=== PATIENT | female | born 1975 | race Caucasian/White ===

== ENCOUNTER 2017-12-13 14:30 | Observation (INO) | payer BC ==
[2017-12-13 15:32] VITALS: BMI 36.6
[2017-12-13] MEDS ORDERED: Dextrose 50% Abboject 50 ML SYRINGE SLOW IVP PRN (15:48)
[2017-12-13] MEDS ORDERED: Ondansetron ODT 4 MG TAB PO PRN (15:48)
[2017-12-13] MEDS ORDERED: Dextrose 5% in Water 1,000 ML IV PRN (15:48)
[2017-12-13] MEDS ORDERED: Ondansetron HCl/PF 4 MG/2 ML Vial IVP PRN (15:48)
[2017-12-13] MEDS ORDERED: traMADol HCl 50 MG TAB PO PRN ×2 (15:51)
[2017-12-13] MEDS: Lactated Ringer's 1,000 ML IV SCH (16:24)
[2017-12-13] MEDS: Acetaminophen 500 MG TAB PO SCH (17:36)
[2017-12-13] MEDS: Ketorolac Tromethamine 30 MG/ML VIAL IVP SCH (17:36)
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
[2017-12-13] MEDS: Gabapentin 300 MG CAP PO SCH (20:25)
[2017-12-13] MEDS: Hydroxychloroquine Sulfate 200 MG TAB PO SCH (20:25)
[2017-12-14] MEDS: Ketorolac Tromethamine 30 MG/ML VIAL IVP SCH ×2 (00:14→06:27)
[2017-12-14] MEDS: Acetaminophen 500 MG TAB PO SCH ×3 (00:15→12:30)
[2017-12-14] MEDS: Lactated Ringer's 1,000 ML IV SCH (02:31)
[2017-12-14 05:08] LABS: #Eosinphils 0.1 thou/uL (0.0-0.7); #Lymphocytes 2.4 thou/uL (1.20-3.40); #Monocytes 0.9 thou/uL (0.11-0.59); #Neutrophils 7.4 thou/uL (1.40-6.50); %Basophils 0.2 % (0.0-1.0); %Eosinophils 0.9 % (0.0-10.0); %Monocytes 8.3 % (0.0-10.0); %Neutrophils 68.6 % (42.0-75.0); Hemoglobin 13.8 g/dL (12.0-16.0); Mean Corpuscular HGB CONC 35.3 g/dL (32.0-36.0); Mean Corpuscular Hemoglobin 32.3 pg (27.0-31.0); Mean Corpuscular Volume 91.5 fl (81.0-99.0); Mean Platelet Volume 6.4 fL (7.4-10.4); Platelet Count 305 thou/uL (130-400); RBC Distribution Width 12.6 % (11.5-14.5); Red Blood Cell (RBC) Count 4.27 mill/uL (4.20-5.40); White Blood Cell (WBC) Count 10.7 thou/uL (4.8-10.8)
[2017-12-14] MEDS: Hydroxychloroquine Sulfate 200 MG TAB PO SCH (08:14)
[2017-12-14] MEDS: Gabapentin 300 MG CAP PO SCH (08:14)
[2017-12-14] MEDS ORDERED: Escitalopram Oxalate 20 mg Tablet PO SCH (09:00)
[2017-12-14] MEDS ORDERED: Multivitamin W/ Minerals 1 TAB PO SCH (09:00)
[2017-12-14] MEDS ORDERED: Calcium Carbonate 600 MG TAB PO SCH (09:00)
[2017-12-14] MEDS ORDERED: Ibuprofen 600 MG TAB PO SCH (09:00)
[2017-12-14] MEDS ORDERED: predniSONE 5 MG TAB PO SCH (09:00)
[2017-12-14] MEDS ORDERED: Stress 600 With Zinc 1 TAB PO SCH (09:00)
[2017-12-14 11:56] VITALS: BP 101/68; TEMP 98
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
[2017-12-15] MEDS ORDERED: Furosemide 80 MG TAB PO SCH (09:00)
[2017-12-15] MEDS ORDERED: Nebivolol HCl 5 MG TAB PO SCH (09:00)
[2017-12-15] MEDS ORDERED: Valsartan 80 MG TAB PO SCH (09:00)
[2017-12-15] MEDS ORDERED: Hydrochlorothiazide 25 MG TAB PO SCH (09:00)
== END 2017-12-14 14:45 | disposition home or self-care (01) ==
LOC: SURG B 14:30
PROVIDERS: ADMIT Surgery; ATTEND Surgery
DX: K43.9 Ventral hernia without obstruction or gangrene (principal); I48.2 Chronic atrial fibrillation; I10 Essential (primary) hypertension; D89.89 Other specified disorders involving the immune mechanism, not elsewhere classified; E66.01 Morbid (severe) obesity due to excess calories; Z68.36 Body mass index [BMI] 36.0-36.9, adult; Z79.891 Long term (current) use of opiate analgesic; Z79.52 Long term (current) use of systemic steroids; Z79.899 Other long term (current) drug therapy; Z88.8 Allergy status to other drugs, medicaments and biological substances; V86.59XA Driver of other special all-terrain or other off-road motor vehicle injured in nontraffic accident, initial encounter
CPT/HCPCS: 36415; 85025; 96361; 96374; 96375; 96376; G0378; J1885; J2270

== ENCOUNTER 2018-01-11 15:37 | Outpatient (CLI) | payer BC ==
[2018-01-11 16:46] LABS: #Basophils 0.1 thou/uL (0.0-0.2); #Eosinphils 0.1 thou/uL (0.0-0.7); #Lymphocytes 2.4 thou/uL (1.20-3.40); #Monocytes 0.7 thou/uL (0.11-0.59); #Neutrophils 4.2 thou/uL (1.40-6.50); %Basophils 0.7 % (0.0-1.0); %Eosinophils 1.8 % (0.0-10.0); %Monocytes 9.3 % (0.0-10.0); %Neutrophils 56.2 % (42.0-75.0); Hemoglobin 14.6 g/dL (12.0-16.0); Mean Corpuscular Hemoglobin 33.1 pg (27.0-31.0); Mean Corpuscular Volume 91.7 fL (78.0-98.0); Mean Platelet Volume 6.3 fL (7.4-10.4); Platelet Count 356 thou/uL (130-400); RBC Distribution Width 12.7 % (11.5-14.5); White Blood Cell (WBC) Count 7.5 thou/uL (4.8-10.8)
[2018-01-11 17:07] LABS: Anion Gap 12 mmol/L (10-20); BUN (Urea Nitrogen) 14 mg/dL (7.0-18.7); Calc. Creatinine Clearance 0 mL/min (70-130); Calcium 9.5 mg/dL (7.8-10.44); Carbon Dioxide 28 mmol/L (22-29); Chloride 102 mmol/L (98-107); Estimated GFR-MDRD 73; Glucose 98 mg/dL (70-105); Potassium 4.1 mmol/L (3.5-5.1); Sodium 138 mmol/L (136-145)
== END 2018-01-11 15:38 | disposition home or self-care (01) ==
LOC: LABBT 15:37
PROVIDERS: ATTEND Specialist
DX: Z01.812 Encounter for preprocedural laboratory examination (principal); K43.9 Ventral hernia without obstruction or gangrene
CPT/HCPCS: 80048; 85025

== ENCOUNTER 2018-01-17 11:52 | Observation (INO) | payer BC ==
[2018-01-17] MEDS ORDERED: Ketorolac Tromethamine 30 MG/ML VIAL ONE (12:49)
[2018-01-17] MEDS ORDERED: CEFAZOLIN/Water 2 GM/20 ML SYRINGE ONE (12:49)
[2018-01-17] MEDS ORDERED: Ondansetron HCl/PF 4 MG/2 ML Vial ONE (12:53)
[2018-01-17] MEDS ORDERED: Glycopyrrolate 0.2 MG/ML 5 ML SYRINGE ONE (12:53)
[2018-01-17] MEDS ORDERED: Succinylcholine Chloride 20 MG/ML 10 ml SYRINGE FS ONE (12:53)
[2018-01-17] MEDS ORDERED: Dexamethasone 20 MG/5 ML VIAL ONE (12:53)
[2018-01-17] MEDS ORDERED: Lidocaine 1% PF 5 ML VIAL ONE (12:53)
[2018-01-17] MEDS ORDERED: PROPOFOL 200 MG/20 ML VIAL ONE (12:53)
[2018-01-17] MEDS ORDERED: Midazolam HCl 2 mg/2 ml Vial ONE (13:00)
[2018-01-17] MEDS ORDERED: Fentanyl 100 MCG/2 ML VIAL ONE ×4 (15:09→19:42)
[2018-01-17] MEDS ORDERED: Bupivacaine HCl 0.25%/Epi 0.0005/PF 10 ML VIAL FS ONE ×2 (15:09)
[2018-01-17] MEDS ORDERED: HYDROmorphone 0.5 MG/0.5 ML SYRINGE ONE (15:10)
[2018-01-17] MEDS ORDERED: Promethazine HCl 25 MG/ML VIAL IM PRN ×2 (18:58→19:12)
[2018-01-17] MEDS ORDERED: Dextrose 5% in Water 1,000 ML IV PRN (18:58)
[2018-01-17] MEDS ORDERED: hydrALAZINE 20 MG/ML VIAL SLOW IVP PRN (18:58)
[2018-01-17] MEDS ORDERED: Ondansetron HCl/PF 4 MG/2 ML Vial IVP PRN ×2 (18:58→19:12)
[2018-01-17] MEDS ORDERED: Dextrose 50% Abboject 50 ML SYRINGE SLOW IVP PRN (18:58)
[2018-01-17] MEDS ORDERED: HYDROcodone/Acetaminophen 7.5/325 mg Tablet PO PRN (18:58)
[2018-01-17] MEDS ORDERED: Methocarbamol 500 MG TAB PO PRN (19:05)
[2018-01-17] MEDS ORDERED: Promethazine HCl 25 MG/ML VIAL SLOW IVP PRN (19:12)
[2018-01-17] MEDS: Gabapentin 300 MG CAP PO SCH (21:24)
[2018-01-17] MEDS: Famotidine 20 MG TAB PO SCH (21:25)
[2018-01-17] MEDS: Hydroxychloroquine Sulfate 200 MG TAB PO SCH (21:25)
[2018-01-17] MEDS: Docusate 100 MG CAP PO SCH (21:25)
[2018-01-17] MEDS: HYDROcodone/Acetaminophen 7.5/325 mg Tablet PO PRN (21:31)
[2018-01-17 21:34] VITALS: BMI 40.2
[2018-01-17] MEDS: D5 1/2 NS w/20 mEq KCL 1,000 ML IV SCH (21:40)
[2018-01-18 03:34] VITALS: TEMP 98.5
[2018-01-18] MEDS: HYDROcodone/Acetaminophen 7.5/325 mg Tablet PO PRN ×2 (03:35→09:55)
[2018-01-18] MEDS: D5 1/2 NS w/20 mEq KCL 1,000 ML IV SCH (03:36)
[2018-01-18 06:15] LABS: #Lymphocytes 0.8 thou/uL (1.20-3.40); #Monocytes 0.7 thou/uL (0.11-0.59); #Neutrophils 9.4 thou/uL (1.40-6.50); %Basophils 0.1 % (0.0-1.0); %Eosinophils 0.1 % (0.0-10.0); %Lymphocytes 7.5 % (21.0-51.0); %Monocytes 6.2 % (0.0-10.0); %Neutrophils 86.1 % (42.0-75.0); Hemoglobin 12.9 g/dL (12.0-16.0); Mean Corpuscular HGB CONC 34.8 g/dL (32.0-36.0); Mean Corpuscular Hemoglobin 32.1 pg (27.0-31.0); Mean Corpuscular Volume 92.2 fL (78.0-98.0); Mean Platelet Volume 6.4 fL (7.4-10.4); Platelet Count 302 thou/uL (130-400); RBC Distribution Width 12.5 % (11.5-14.5); Red Blood Cell (RBC) Count 4.02 mill/uL (4.20-5.40); White Blood Cell (WBC) Count 10.9 thou/uL (4.8-10.8)
[2018-01-18] MEDS ORDERED: Nebivolol HCl 5 MG TAB PO SCH (09:00)
[2018-01-18] MEDS ORDERED: Furosemide 80 MG TAB PO SCH (09:00)
[2018-01-18] MEDS ORDERED: Valsartan 80 MG TAB PO SCH (09:00)
[2018-01-18] MEDS ORDERED: Loratadine 10 MG TAB PO SCH (09:00)
[2018-01-18] MEDS ORDERED: Hydrochlorothiazide 25 MG TAB PO SCH (09:00)
[2018-01-18] MEDS ORDERED: Enoxaparin Sodium 40 MG/0.4 ML SYRINGE SC SCH (09:00)
[2018-01-18] MEDS ORDERED: Escitalopram Oxalate 20 mg Tablet PO SCH (09:00)
[2018-01-18] MEDS: Docusate 100 MG CAP PO SCH (09:10)
[2018-01-18] MEDS: Hydroxychloroquine Sulfate 200 MG TAB PO SCH (09:10)
[2018-01-18] MEDS: Gabapentin 300 MG CAP PO SCH (09:11)
[2018-01-18] MEDS: Famotidine 20 MG TAB PO SCH (09:55)
[2018-01-18 11:42] VITALS: BP 103/69
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
--- NOTE | 2018-01-21 17:38 | EKG ---
Test Reason : PREOP Blood Pressure : / mmHG Vent. Rate : 059 BPM Atrial Rate : 059 BPM P-R Int : 154 ms QRS Dur : 104 ms QT Int : 468 ms P-R-T Axes : 028 034 019 degrees QTc Int : 463 ms Sinus bradycardia with sinus arrhythmia Nonspecific ST and T wave abnormality Prolonged QT Abnormal ECG No previous ECGs available Confirmed by SONA TURNER (2) on 01/21/2018 5:37:44 PM Referred By: ADONIS Confirmed By:SONA TURNER
== END 2018-01-18 12:35 | disposition home or self-care (01) ==
LOC: SDC 11:52 → SJJU 20:46
PROVIDERS: ADMIT Specialist; ATTEND Specialist
PROC: 0WUF4JZ Supplement Abdominal Wall with Synthetic Substitute, Percutaneous Endoscopic Approach (ICD-10-PCS; principal; 2018-01-17)
DX: K43.9 Ventral hernia without obstruction or gangrene (principal); I10 Essential (primary) hypertension; Z79.899 Other long term (current) drug therapy; Z88.8 Allergy status to other drugs, medicaments and biological substances
CPT/HCPCS: 36415; 85025; 93005; 93010; 96372; 96374; 96375; 96376; G0378; J0131; J1100; J1170; J1885; J2001; J2250; J2270; J2405; J2704; J3010